=== PATIENT | female | born 1985 | race Caucasian/White ===

== ENCOUNTER 2016-12-26 23:33 | Observation (INO) | payer MEDICAID ==
[~2016-12-26] VITALS: Ht 142.2 cm; Wt 63.0 kg
[2016-12-27] MEDS ORDERED: IRON-1 PO (01:44)
[2016-12-27] MEDS ORDERED: OCD MT (01:44)
[2016-12-27] MEDS ORDERED: PREN-88 PO (01:44)
[2016-12-27] MEDS ORDERED: FOLI-43 PO (01:44)
[2016-12-27] MEDS ORDERED: TERBUTALINE SULFATE 1MG/ML VIAL SUBCUT PRN (01:45)
[2016-12-27] MEDS ORDERED: LACTATED RINGERS 1,000 ML IV SCH (01:45)
== END 2016-12-27 04:54 | disposition home or self-care (01) ==
LOC: L&D 23:33
PROVIDERS: ADMIT Obstetrics & Gynecology; ATTEND Obstetrics & Gynecology
DX: O26.893 Other specified pregnancy related conditions, third trimester (principal); R10.30 Lower abdominal pain, unspecified; O26.853 Spotting complicating pregnancy, third trimester; Z3A.37 37 weeks gestation of pregnancy
CPT/HCPCS: 96360; 96361; 96365; 99281; G0378; J3105; J7120; 96372